=== PATIENT | female | born 1970 | race Caucasian/White ===

== ENCOUNTER 2018-07-02 10:55 | Outpatient (CLI) | payer OTHER | END 2018-07-02 11:03 | disposition home or self-care (01) | LOC: MRI 10:55 | DX: M25.511 Pain in right shoulder (principal) | CPT/HCPCS: 73218 ==

== ENCOUNTER 2018-10-08 08:17 | Outpatient (CLI) | payer OTHER | END 2018-10-08 17:00 | disposition home or self-care (01) | LOC: TOM 08:17 | DX: R55 Syncope and collapse (principal) ==

== ENCOUNTER 2022-10-19 10:17 | Emergency (ER) | payer OTHER ==
[~2022-10-19] VITALS: Ht 175.3 cm; Wt 81.6 kg
[2022-10-19] MEDS ORDERED: DICLOFENAC SODI75 MG PO (11:39)
[2022-10-19] MEDS ORDERED: AMOX-CLAV 875-1 EACH PO (11:39)
== END 2022-10-19 13:03 | disposition home or self-care (01) ==
LOC: ER 10:17
DX: H66.92 Otitis media, unspecified, left ear (principal)